=== PATIENT | male | born 2000 | race Caucasian/White ===

== ENCOUNTER 2024-05-02 12:09 | Outpatient (AMB) | payer OTHER, SELFPAY ==
--- NOTE | 2024-05-02 11:57 | A.OFFPC_ITS ---
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 Allergies amoxicillin Allergy (Severe, Verified 05/02/24 12:23) Shortness of Breath Tobacco use date assessed: 05/02/24 Dental Screening Dental Screen Date: 05/02/24 Did you have a dental visit in the last 12 months?: No Did you have a dental problem in the last 6 months where you did not have access to dental care?: No Was dental information given to patient?: Patient has dentist HPI HPI Comments History of Present Illness Details 23-year-old male renal calculi, generali zed anxiety disorder, major depressive disorder, ADHD, hx of childhood asthma, viral colitis & ileitis, functional constipation Surgical: none Social works at [employer], lives @ home with mom. Has a brother and sister. Family history mother with anxiety, endometriosis, hypertension, with ADHD, maternal grandmother with bipolar, depression, hyperlipidemia, schizophrenia, brother w/ fatty liver Health Maintenance: EGD colonoscopy completed 11/18/2021 showing scattered ulcerations in the terminal ileum tdap 2023 declined flu Specialsits GI* Uro* *no longer seeing. Optho last exam 1-2 years ago History of Present Illness The patient is a 23-year-old male presenting to [facility] as a new patient & for a CPE. He has a history of renal calculi, generalized anxiety disorder, major depressive disorder, ADHD, asthma, colitis, and functional constipation. The patient reports that he is currently not taking any medications and is managing well without them. He recalls experiencing back pain on the left side intermittently recently but notes it resolved on its own and is not associated with any urinary symptoms such as hematuria or changes in urination. He reports no current or recent episodes of anxiety or depression, with his mood described as good and ADHD well-controlled without medication. His appetite is good, and his weight has remained stable. The patient reports that his sleep could be improved due to his work schedule, noting he works second shift, which impacts sleep quality. Health Maintenance - Discussed and confirmed recent tetanus vaccination. - No flu vaccination taken; offered but declined during this visit. - Encouraged future patient portal sign- up for managing health records and receiving lab results. Social History - Currently living with mother. Reports feeling safe at home. - Not sexually active and no history of sexually transmitted diseases noted. - Visual issues mentioned, specifically challenges with astigmatism at night. Review of Systems - Gastrointestinal: Denies abdominal kathryn n; bowel movements normal. - Neurological: Denies headaches or dizz iness. - Psychiatric: Denies anxiety, depressio n; sleep affected by work schedule. General: Well developed, well nourished, in no acute distress. Appears stated age. Head: Normocephalic, atraumatic. Eyes: Pupils are equal, round and reactive to light and accommodation. Conjunctivae are clear. Vision grossly normal. Ears: TMs clear AU, EACS WNL Nose: Patent, without discharge. Mouth: There are no ulcers or lesions noted. No inflammation, no post nasal drip, no plaques nor exudates. Neck: Supple, no adenopathy or thyromegaly. Lungs: Clear to auscultation bilaterally. No rales, rhonchi or wheeze noted. Good air flow in all palomo. Heart: Regular rate and rhythm. No murmurs, click, rubs or gallops are noted. Abdomen: Bowel sounds present in all quadrants. The abdomen is soft, nontender, with no masses or organomegaly noted. No hernias are noted. NO CVAT bilat Musculoskeletal: Joints are nontender, without swelling, redness, or effusions. Range of motion is observed to be normal. Pulses: Peripheral pulses are equal and palpable bilaterally. Extremities: No clubbing, cyanosis nor edema is noted. Neurologic: Gait and station normal. Cranial Nerves 2-12 intact. Motor stren gth grossly symmetrical and intact. No sensory loss. Balance normal. Skin: No rashes, ulcers, or lesions noted. Turgor is good. Skin color is good. Hair and nails are without abnormalities. Psych: Normal eye contact, affect and mood appropriate, and normal interactions. Patient is alert and appropriate to context. Plan - Monitor renal calculi symptoms; will o btain labs to assess current kidney function. - Encourage following up with mental hea lt for generalized anxiety disorder and major depressive disorder if symptoms recur. - Continue monitoring ADHD without medic ation unless symptoms return. 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 - Maintain dietary management for coliti s and functional constipation. Patient was informed and verbally consented to the use of an ambient scribe for clinic note documentation during this visit. Discussion Notes I discussed with the patient the importance of monitoring for symptoms of kidney stones, given his history of renal calculi. We agreed to perform laboratory tests today.. I advised the patient to observe for any recurring symptoms, such as back pain associated with urinary changes, which could indicate a need for immediate attention. We also talked about the management of his mental health conditions, noting his current stable mood. The patient expressed understanding and willingness to engage with the patient portal for future communication and management. Additionally, I provided anticipatory guidance on maintaining his health, including discussing his sleep challenges due to work hours and encouraging ongoing asthma management as needed. Form completed for window tint for RMV r/t astigmatism. Patient Instructions - Follow up on lab results via the [email or web address] portal. - Contact the clinic if experiencing any symptoms of kidney stones, such as severe back pain or changes in urination. - Practice sleep hygiene to improve slee p quality despite work schedule. - Maintain adherence to dietary recommen dations for colitis management. - Reach out if there are any changes in mental health status for further support and management. - Ensure safety practices at work and ho me, and reach out for help if feeling unsafe in any environment. - RTO 1 year CPE, sooner PRN PFSH Medical History (Updated 05/02/24 @ 12:45 by Constance Jimenez, [facility]) Broken toe Astigmatism of both eyes Kidney stones Impulsive ADHD Surgical History (Updated 05/02/24 @ 12:04 by Theodore Medina MA) H/O endoscopy Hx of colonoscopy Family History (Updated 05/02/24 @ 12:02 by Theodore Medina MA) Maternal Grandfather Substance abuse Paternal Grandmother Breast cancer Thyroid disorder Cardiovascular disease Hypertension Maternal Grandmother Breast cancer Thyroid disorder Cardiovascular disease Paternal Grandfather Diabetes Hypertension Brother Fatty liver disease, nonalcoholic Mother Hypertension Father Hypertension Social History (Updated 05/02/24 @ 11:57 by Theodore Medina MA) Household Members: Family Both parents involved: Yes Caregiver staying overnight: No Housing: House Are you a primary care director to a significant other at home: No Do you presently have visiting nurse or other home services: No 75 years or older and lives alone: No Alcohol intake: current Alcohol intake frequency: a few times a month Patient Tobacco Use Status: Never used Tobacco e-Cigarette/Vaping Use: Never Used Second Hand Smoke Exposure: No Current occupational status: employed Cognitive needs: No Hearing needs: No Vision needs: Yes Questionnaire PHQ-9 Over the last 2 weeks, how often have you been bothered by any of the following problems? 1. Little interest or pleasure in doing things: several days 2. Feeling down, depressed, or hopeless: not at all 3. Trouble falling or staying asleep, or sleeping too much: several days 4. Feeling tired or having little energy: not at all 5. Poor appetite or overeating: not at all 6. Feeling bad about yourself - or that you are a failure or have let yourself or your family down: not at all 7. Trouble concentrating on things, such as reading the newspaper or watching television: several days 8. Moving or speaking so slowly that other people could have noticed. Or the opposite - being so fidgety or restless that you have been moving around a lot more than usual: not at all 9. Thoughts that you would be better off or of hurting yourself in some way: not at all Total score: 3 Depression Screening Interpretation: Negative Depression Screening Done: Yes 00506 - PHQ-9 Billing: Yes Source: Developed by Drs. Yung Lopez, Margaret August, Angelo Paredes and colleagues, with an educational vanesa from [employer]. Thrive Questionnaire Date Thrive assessed: 05/02/24 I am a: Patient What is your living situation today?: I have a steady place to live Within the past 12 months, did the food you bought not last and you didn't have the money to get more?: Never true Within the past 12 months, did you worry whether your food would run out before you got money to buy more?: Never true Do you have trouble paying for medicines?: No Do you have trouble getting transportation to medical appointments?: No Do you have trouble paying your heating and electricity bill?: No Do you have trouble taking care of your child, family member or friend?: No Do you have trouble with day-to-day activities such as bathing, preparing meals, shopping, managing finances, etc.?: No Are you currently unemployed and looking for a job?: No Are you interested in more education?: No THRIVE Score: 0 AUDIT C Alcohol Use Questionnaire (AUDIT-C) 1. How often do you have a drink containing alcohol?: Monthly or less 2. How many drinks containing alcohol do you have on a typical day when you are drinking?: 1 or 2 Total Score: 1 Score Reviewed/Action Taken: Yes ISABEL-7 AMB Questionnaire ISABEL-7 Date ISABEL - 7 assessed: 05/02/24 Feeling nervous, anxious, or on edge: 0 = Not at all Not being able to stop or control worryin = Not at all Worrying too much about different things: 0 = Not at all Trouble relaxin = Not at all Being so restless that it is hard to sit still: 0 = Not at all Becoming easily annoyed or irritable: 0 = Not at all Feeling afraid as if something awful might happen: 0 = Not at all Total ISABEL-7 score (0-4 normal; 5-9 mild; 10-14 moderate; 15-21 severe): 0 Source: Developed by Drs. Yung Lopez, Margaret August, Angelo Paredes and colleagues, with an educational vanesa from [employer]. ISABEL-7 Assessment Billing ISABEL-7 Assessment Tool: ISABEL-7 Assessment 25179 Physical exam (Primary Care) Tobacco/Smoking Status: Tobacco use Status Tobacco use date assessed 05/02/24 05/02/24 12:07 Patient Tobacco Use Status Never used Tobacco 05/02/24 12:07 e-Cigarette/Vaping Use Never Used 05/02/24 12:07 Depression Screening Interpretation: Negative Coding Level of Care Code New Pt Prev Care 18-39yr(70670 Diagnoses Encounter for general adult medical examination without abnormal findings Z00.00 ISABEL (generalized anxiety disorder) F41.1 History of colitis Z87.19 MDD (recurrent major depressive disorder) in remission F33.40 Attention deficit hyperactivity disorder (ADHD), combined type F90.2 Attention deficit-hyperactivity disorder type: combined inattentive- hyperactive Astigmatism of both eyes, unspecified type H52.203 Astigmatism type: unspecified Kidney stones N20.0 Laboratory exam ordered as part of routine general medical examination Z00.00 Additional Codes ISABEL-7 Assessment Billing - ISABEL-7 Assessment Tool: ISABEL-7 Assessment 97553 ([id number]) PHQ-9 - 83485 - PHQ-9 Billing: Yes ([id number]) Assessment & Plan Assessment & Plan (1) Encounter for general adult medical examination without abnormal findings: Code(s): Z00.00 - Encounter for general adult medical examination without abnormal findings Category: Medical (2) ISABEL (generalized anxiety disorder): Code(s): F41.1 - Generalized anxiety disorder Category: Medical (3) History of colitis: Comment: viral Code(s): Z87.19 - Personal history of other diseases of the digestive system Category: Medical (4) MDD (recurrent major depressive disorder) in remission: Code(s): F33.40 - Major depressive disorder, recurrent, in remission, unspecified Category: Medical (5) ADHD: Code(s): F90.9 - Attention-deficit hyperactivity disorder, unspecified type Category: Medical Qualifiers: Attention deficit-hyperactivity disorder type: combined inattentive- hyperactive Qualified Code(s): F90.2 - Attention-deficit hyperactivity disorder, combined type (6) Astigmatism of both eyes: Code(s): H52.203 - Unspecified astigmatism, bilateral Category: Medical Qualifiers: Astigmatism type: unspecified Qualified Code(s): H52.203 - Unspecified astigmatism, bilateral (7) Kidney stones: Code(s): N20.0 - Calculus of kidney Category: Medical (8) Laboratory exam ordered as part of routine general medical examination: Code(s): Z00.00 - Encounter for general adult medical examination without abnormal findings Category: Medical Plan . Orders: Orders TSH reflex Free T4 Today Z00.00 - Encounter for general adult medical examination without abnormal findings Complete Blood Count no Diff Today Z00.00 - Encounter for general adult medical examination without abnormal findings Comprehensive Met. Panel Today Z00.00 - Encounter for general adult medical examination without abnormal findings Lipid Panel Today Z00.00 - Encounter for general adult medical examination without abnormal findings Microalbumin, Random (w Creat) Today Z00.00 - Encounter for general adult medical examination without abnormal findings UA CC w/rflx Micro + Cult Today Z00.00 - Encounter for general adult medical examination without abnormal findings Patient Instructions: - Follow up on lab results via the patient portal. - Contact the clinic if experiencing any symptoms of kidney stones, such as severe back pain or changes in urination. - Practice sleep hygiene to improve sleep quality despite work schedule. - Maintain adherence to dietary recommendations for colitis management. - Reach out if there are any changes in mental health status for further support and management. - Ensure safety practices at work and home, and reach out for help if feeling unsafe in any environment. Health screenings for men You should visit your health care provider regularly, even if you feel healthy. The purpose of these visits is to: Screen for medical issues Assess your risk for future medical problems Encourage a healthy lifestyle Update vaccinations and other preventive care services Help you get to know your provider in case of an illness Information Even if you feel fine, you should still see your provider for regular checkups. These visits can help you avoid problems in the future. For example, the only way to find out if you have high blood pressure is to have it checked regularly. High blood sugar and high cholesterol level also may not have any symptoms in th e early stages. Simple blood tests can check for these conditions. There are specific times when you should see your provider or receive specific health screenings. The [place] Preventive Services Task Force publishes a list of recommended screenings. Below are screening guidelines for men ages 40 to 64. BLOOD PRESSURE SCREENING Have your blood pressure checked at least once every year. Watch for blood pressure screenings in your area. Ask your provider if you can stop in to have your blood pressure checked. Ask your provider if you need your blood pressure checked more often if: You have diabetes, heart disease, kidney problems, or are overweight or have certain other health conditions You have a first-degree relative with high blood pressure You are Black Your blood pressure top number is from 120 to 129 mm Hg, or the bottom number is from 70 to 79 mm Hg If the top number is 130 mm Hg or greater or the bottom number is 80 mm Hg or greater, this is considered stage 1 hypertension. Schedule an appointment with your provider to learn how you can lower your blood pressure. Effects of age on blood pressure CHOLESTEROL SCREENING Cholesterol screening should begin at age 35 for men with no known risk factors for coronary heart disease. Repeat cholesterol screening should take place: Every 5 years for men with normal cholesterol levels More often if changes occur in lifestyle (including weight gain and diet) More often if you have diabetes, heart disease, kidney problems, or certain other conditions COLORECTAL CANCER SCREENING If you are under age 45, talk to your provider about getting screened. You may need to be screened if you have a strong family history of colon cancer or polyps. Screening may also be considered if you have risk factors such as a history of inflammatory bowel disease or polyps. If you are age 45 to 75, you should be screened for colorectal cancer. There are several screening tests available: A stool-based fecal occult blood (gFOBT) or fecal immunochemical test (FIT) every year A stool sDNA test every 1 to 3 years Flexible sigmoidoscopy every 5 years or every 10 years with stool testing FIT done every year CT colonography (virtual colonoscopy) every 5 years Colonoscopy every 10 years You may need a colonoscopy more often if you have risk factors for colorectal cancer, such as: Ulcerative colitis A personal or family history of colorectal cancer A history of growths in your colon called adenomatous polyps DENTAL EXAM Go to the dentist once or twice every year for an exam and cleaning. Your dentist will evaluate if you have a need for more frequent visits. DIABETES SCREENING All adults who do not have risk factors for diabetes should be screened starting at age 35 and repeated every 3 years. If you have other risk factors for diabetes, such as a first degree relative with diabetes, overweight or obesity, high blood pressure, prediabetes, or a history of heart disease, you may be tested more often. If you are overweight and have other risk factors, such as high blood pressure and are planning to become , screening is recommended. EYE EXAM Have an eye exam every 2 to 4 years ages 40 to 54 and every 1 to 3 years ages 55 to 64. Your provider may recommend more frequent eye exams if you have vision problems or glaucoma risk. Have an eye exam that includes an examination of your retina (back of your eye) at least every year if you have diabetes. IMMUNIZATIONS Commonly needed vaccines include: Flu shot: get one every year COVID-19 vaccine: ask your provider what is best for you Tetanus-diphtheria and acellular pertussis (Tdap) vaccine: have as one of your tetanus-diphtheria vaccines if you did not receive it as an adolescent Tetanus-diphtheria: have a booster (or Tdap) every 10 years Varicella vaccine: receive 2 doses if you never had chickenpox or the varicella vaccine and were born in 1979 or after Hepatitis B vaccine: receive 2, 3, or 4 doses, depending on your exact circumstances, if you did not receive these as a child or adolescent, until age 59 Shingles (herpes zoster) vaccine: at or after age 50 Ask your provider if you should receive other immunizations, especially if you have certain medical conditions, such as diabetes or are at increased risk for some diseases such as pneumonia. INFECTIOUS DISEASE SCREENING Screening for hepatitis C: all adults ages 18 to 79 should get a one-time test for hepatitis C. Screening for human immunodeficiency virus (HIV): all people ages 15 to 65 should get a one-time test for HIV. Depending on your lifestyle and medical history, you may need to be screened for infections such as syphilis, chlamydia, and other infections. LUNG CANCER SCREENING You should have an annual screening for lung cancer with low-dose computed tomography (LDCT) if: You are age 50 to 80 years AND You have a 20 pack-year smoking history AND You currently smoke or have quit within the past 15 years OSTEOPOROSIS SCREENING If you are age 50 to 64 and have risk factors for osteoporosis, you should discuss screening with your provider. Risk factors can include long-term steroid use, low body weight, smoking, heavy alcohol use, having a fracture after age 50, or a family history of hip fracture or osteoporosis. Osteoporosis PHYSICAL EXAM All adults should visit their provider from time to time, even if they are healthy. The purpose of these visits is to: Screen for diseases Assess risk of future medical problems Encourage a healthy lifestyle Update vaccinations and other preventive care services Maintain a relationship with a provider in case of an illness Your height, weight, and body mass index (BMI) should be checked at every exam. During your exam, your provider may ask you about: Depression and anxiety Diet and exercise Alcohol and tobacco use Safety, such as use of seat belts and smoke detectors Your medicines and risk for interactions PROSTATE CANCER SCREENING If you're 55 through 69 years old, before having the test, talk to your provider about the pros and cons of having a PSA test. Ask about: Whether screening decreases your chance of dying from prostate cancer. Whether there is any harm from prostate cancer screening, such as side effects from testing or overtreatment of cancer when discovered. Whether you have a higher risk of prostate cancer than others. If you are age 55 or younger, screening is not generally recommended. You should talk with your provider about if you have a higher risk for prostate cancer. Risk factors include: Having a family history of prostate cancer (especially a brother or father) Being If you choose to be tested, the PSA blood test is repeated over time (yearly or less often), though the best frequency is not known. Prostate examinations are no longer routinely done on men with no symptoms. Prostate cancer SKIN EXAM Your provider may check your skin for signs of skin cancer, especially if you're at high risk. People at high risk include those who have had skin cancer before, have close relatives with skin cancer, or have a weakened immune system. TESTICULAR EXAM The [place] Preventive Services Task Force (USPSTF) now recommends against performing testicular self-exams. Doing testicular self-exams has been shown to have little to no benefit. Walk-In Care (Urgent Care): We Make it Easy Walk-in for urgent medical issues such as: ? Seasonal Allergies ? Insect Bites ? Cough ? Diarrhea ? Acute Asthma Attacks ? Back, Knee or Joint Pain ? Ear Infection ? Fever without a Rash ? Headaches ? Nausea ? [place], Rash or Skin Irritation ? Sore Throat ? Sports Physicals ? Vomiting Most insurances are accepted. Patients do not need to be part of the [facility] to seek care at the walk-in clinic. Locations [facility] , [place] [address] ? [phone] [facility] in [place] provides services to ages 18 and over. Open Sunday-Sunday: 8 a.m. to 5 p.m. and Sunday: 9 a.m. to 3 p.m.* *Hours may vary due to staffing availability. To confirm Walk-In Care hours in [place], please call [phone]. [address] [place] [address] ? [phone] [facility] in [place] provides services to ages 12 and over. Open Sunday-Sunday: 8 a.m. to 5 p.m. Hours may vary due to staffing availability. To confirm Walk-In Care hours in [place], please call [phone]. LABORATORY SERVICES: [facility] ? Primary Location [address] [place] [address] Sunday through Sunday 6:00 AM ? 5:00 PM Sunday 7:00 AM ? 11:00 AM* [phone] The [facility] is centrally located near the front entrance of the Medical Center for easy outpatient access. Convenient parking is provided for outpatients. *Hours may vary due to staffing availability. To confirm Laboratory hours for any location, please call [phone]. Offsite Location For your convenience, we offer offsite laboratory draw stations at the following locations: [address] [facility], [place] ? [address], [address], [place] Sunday through Sunday 7:30 AM ? 1:00 PM* [phone] *Hours may vary due to staffing availability. To confirm Laboratory hours for any location, please call [phone]. [place] ? [address] [facility], [place] Sunday through Sunday 6:00 AM ? 3:30 PM* Sunday 6:30 AM ? 3 PM* [phone] *Hours may vary due to staffing availability. To confirm Laboratory hours for any location, please call [phone] [place] [address] Sunday through Sunday 7:30 AM ? 4:00 PM* [phone] *Hours may vary due to staffing availability. To confirm Laboratory hours for any location, please call [phone] [place] [address] Sunday through 9:00 AM ? 4:00 PM* *Hours may vary due to staffing availability. To confirm Laboratory hours for any location, please call [phone]. Appointments are not necessary. Walk-ins are welcome. Like all the departments throughout the [facility], our Lab undergoes frequent reviews to ensure the quality and accuracy of test results, and our staff takes special pride in its status as a nationally accredited facility. Patient Portal: ONE PATIENT. ONE RECORD. BETTER CARE. [facility] has a fully integrated, cutting- edge mobile electronic health information system that has revolutionized the way we care for our patients and manage our organization. This system improves communication and coordination enabling us to provide safe, higher-quality care, and an overall positive experience for staff and patients. Our first priority, as always, is to deliver the highest quality care possible. The system is running in the background supporting that priority. This portal is for all [facility] services and practices. If you are experiencing any technical difficulties with enrolling or logging into the Patient Portal please complete the [facility] Patient Portal Technical Support Form. [facility] now offers a new secure on-line interactive tool for patients to review their health information ? ?Patient Portal. This interactive web portal will enable patients and their families to take an active role in their care by providing easy, secure access to their health information via the internet. The Patient Portal provides patients with instant access to their health information, including laboratory results, medications, allergies, demographic information, visit history, and more. In addition to managing their own care, parents and health care proxies with authorized consent will appreciate the ability to access the records of those individuals for whom they provide care. Please note: if you wish to gain access (Proxy) to another patient?s portal, you will be required to come to the Medical Records Department in person at [facility]. Both the patient giving proxy access and the proxy will need to provide photo identification and complete the appropriate authorization. The Patient Portal also allows track their appointments online. The [facility] Patient Portal also saves patients time by allowing them to submit updates to their demographic and contact information prior to their visits. Portal email notifications will also alert patients to any new activity on their portal, such as test results and new appointments. In order to initially enroll in the [facility] Patient Portal, you will need to enter some required information including the following: * your [facility] Medical Record number * your personal home email address * name * date of Please note: In order to enroll in the [facility] Patient Portal, we need to have your email address on file in your electronic medical record. ?The email address needs to be specific for one person (yourself) in order for your Portal enrollment to be successful. ?You can update your email address in person with our Registration staff when you are registering for a hospital visit. ?O therwise, you will need to come to the Health Information Management (Medical Records) Department at [facility]. ?We are open from Sunday ? Sunday from 7:30 a.m. ? 4:30 p.m. ?You will be required to present a photo id. Once you have successfully enrolled in the Patient Portal, you will receive a one-time user id and password for the Portal, sent to your email address. ?This will allow you to log into the Patient Portal within 99 hrs and reset your own logon id and password, and define personal security questions. ?Once your permanent login and password have been set, you can log into the [facility] Patient Portal at any time via the blue button above or from the Portal Logon button on any page of the [facility] website. [facility] encourage all of our patients to enroll in Patient Portal as it presents a valuable opportunity for patients and their families to actively participate in their care and stay healthy Welcome to [facility]. ?We look forward to working with you.
[2024-05-02 12:12] VITALS: BP 134/70; PULSE 90; RESP 13; O2SAT 99; BMI 23.0
== END 2024-05-02 12:46 | disposition home or self-care (01) ==
PROVIDERS: PCP Nurse Practitioner Family; Visit Provider Nurse Practitioner Family
DX: Z00.00 Encounter for general adult medical examination without abnormal findings (principal); F41.1 Generalized anxiety disorder; Z87.19 Personal history of other diseases of the digestive system; F33.40 Major depressive disorder, recurrent, in remission, unspecified; F90.2 Attention-deficit hyperactivity disorder, combined type; H52.203 Unspecified astigmatism, bilateral; N20.0 Calculus of kidney

== ENCOUNTER → 2024-05-02 12:09 | Outpatient (BNVA) | payer OTHER, SELFPAY | PROVIDERS: PCP Nurse Practitioner Family; Visit Provider Nurse Practitioner Family | DX: Z00.00 Encounter for general adult medical examination without abnormal findings (principal); F41.1 Generalized anxiety disorder; F33.40 Major depressive disorder, recurrent, in remission, unspecified; F90.2 Attention-deficit hyperactivity disorder, combined type; H52.203 Unspecified astigmatism, bilateral; N20.0 Calculus of kidney; Z87.19 Personal history of other diseases of the digestive system | CPT/HCPCS: 96127 ==

== ENCOUNTER 2024-05-02 13:02 | Outpatient (REF) | payer OTHER, SELFPAY ==
[2024-05-02 14:24] LABS: Hematocrit 41.2 % (42.0-52.0); Hemoglobin 14.1 g/dl (14.0-18.0); Mean Corpuscular HGB Conc 34.2 g/dl (31.0-36.0); Mean Corpuscular Hemoglobin 29.5 pg (27.0-33.0); Mean Corpuscular Volume 86.2 fL (80.0-98.0); Mean Platelet Volume 11.2 fL (9.4-12.4); Platelet Count 277 X10*3/uL (160-400); Red Blood Count 4.78 X10*6/uL (4.60-5.80); Red Cell Distribution Width 11.7 % (11.0-16.0); White Blood Count 7.3 X10*3/uL (4.8-10.8)
[2024-05-02 18:02] LABS: Appearance Urine Clear; Color Urine Dark Yellow; Glucose Urine UA Negative (Negative); Leukocyte Esterase Urine Trace (Negative); Nitrite Urine Negative (Negative); Specific Gravity - Urine >= 1.030 (1.005-1.025); UMIC TRIGGER UACC YES; Urine Blood Negative (Negative); Urine Ketones Trace mg/dL (Negative); Urine Protein Negative (Neg-Trace)
[2024-05-02 18:07] LABS: Bacteria Urine None Seen (None Seen); Hyaline Casts Urine 0-2 /LPF (0-2); RBC Urine 0-2 /HPF (0-2); Squamous Epithelial Cell Urine 0-2 /HPF (0-2); WBC Urine 0-5 /HPF (0-5)
[2024-05-02 18:14] LABS: Alanine Aminotransferase 24 U/L (0-40); Albumin Level 4.6 g/dL (3.5-5.0); Alkaline Phosphatase 50 U/L (39-117); Anion Gap 7 (12-20); Aspartate Amino Transferase 22 U/L (5-37); Blood Urea Nitrogen 10 mg/dL (9-16); Calcium 9.7 mg/dL (8.4-10.2); Carbon Dioxide 31 mmol/L (22-29); Chloride 106 mmol/L (96-108); Cholesterol 137 mg/dL (<200); Estimated Glomerular Filt Rate > 60; Glucose Random 77 mg/dL (60-115); HDL Cholesterol 38 mg/dL (>40); LDL Cholesterol Calculated 85 mg/dL (<100); Potassium 4.1 mmol/L (3.3-5.1); Sodium 140 mmol/L (135-145); Triglycerides 70 mg/dL (<150)
[2024-05-02 18:32] LABS: TSH reflex Free T4 0.64 uIU/mL (0.32-4.0)
[2024-05-02 18:40] LABS: Creatinine Urine 257.21 mg/dL; Microalbum/Creatinine Ratio Ur 4.6 ug/mg cr (<30)
== END 2024-05-02 13:03 | disposition home or self-care (01) ==
LOC: HO.WFDLDS 13:02
PROVIDERS: Visit Provider Nurse Practitioner Family
DX: Z00.00 Encounter for general adult medical examination without abnormal findings (principal)
CPT/HCPCS: 36415; 80053; 80061; 81001; 82043; 82570; 84443; 85027

== ENCOUNTER 2024-10-30 11:10 | Outpatient (REF) | payer OTHER, SELFPAY ==
--- NOTE | ~2024-10-30 | XR_ITS ---
EXAMINATION: XR HAND 3 OR MORE VIEWS LEFT HISTORY: S60.222A - Contusion of left hand, initial encounter COMPARISON: There are no prior studies available for comparison. FINDINGS: Three views of the left hand are submitted. Osseous mineralization is normal. There is no fracture or dislocation. The joint spaces are preserved. The soft tissues are unremarkable. XR/XR hand LT min 3V IMPRESSION: Unremarkable examination of the left hand. Electronically signed by: Yung Mclean MD 10/30/2024 12:12 PM EDT
== END 2024-10-30 11:11 | disposition home or self-care (01) ==
LOC: HO.HMGCX 11:10
PROVIDERS: PCP Nurse Practitioner Family; Visit Provider Nurse Practitioner Family
DX: S60.222A Contusion of left hand, initial encounter (principal); M79.642 Pain in left hand; M79.89 Other specified soft tissue disorders; W19.XXXA Unspecified fall, initial encounter
CPT/HCPCS: 73130

== ENCOUNTER 2024-10-30 11:10 | Outpatient (AMB) | payer OTHER, SELFPAY ==
--- NOTE | 2024-10-30 11:13 | MHC.OFFWIV ---
Intake Vital Signs 10/30/24 11:14 Height 5 ft 9.5 in Weight 153 lb BMI 22.3 BP 108/60 Blood Pressure Location Rt brachial Position Sitting Pulse 75 Pulse Source Pulse Oximeter Temp 98.0 F Temp Source Oral Pulse Oximetry (%) 98 Oxygen Delivery Method Room Air Intake Visit Reasons: EP-lt hand swollen/pain from a fall Intake Note: presents with left hand pain and swelling after falling earlier today Patient Tobacco Use Status: Never used Tobacco Allergies amoxicillin Allergy (Severe, Verified 10/30/24 11:18) Shortness of Breath Do you need a note to return to daycare/school/sports/work: Yes HPI HPI Comments History of Present Illness Details 23 y/o Male patient who presents to the walk in clinic with c/o Left hand pain and swelling after a Fall today. Reports pain mainly located at the MCP joint. [facility] Medical History (Updated 10/30/24 @ 11:45 by Denise Aguilar NP) Contusion of left hand, initial encounter Broken toe Astigmatism of both eyes Kidney stones Impulsive ADHD Surgical History (Updated 05/02/24 @ 12:04 by Theodore Medina MA) H/O endoscopy Hx of colonoscopy Family History (Updated 05/02/24 @ 12:02 by Theodore Medina MA) Maternal Grandfather Substance abuse Paternal Grandmother Breast cancer Thyroid disorder Cardiovascular disease Hypertension Maternal Grandmother Breast cancer Thyroid disorder Cardiovascular disease Paternal Grandfather Diabetes Hypertension Brother Fatty liver disease, nonalcoholic Mother Hypertension Father Hypertension Social History (Updated 05/02/24 @ 11:57 by Theodore Medina MA) Household Members: Family Both parents involved: Yes Caregiver staying overnight: No Housing: House Are you a primary career guidance counselor to a significant other at home: No Do you presently have visiting nurse or other home services: No 75 years or older and lives alone: No Alcohol intake: current Alcohol intake frequency: a few times a month Patient Tobacco Use Status: Never used Tobacco e-Cigarette/Vaping Use: Never Used Second Hand Smoke Exposure: No Current occupational status: employed Cognitive needs: No Hearing needs: No Vision needs: Yes Review of Systems Const All systems reviewed & are unremarkable except as noted in HPI and below Physical Exam Vital Signs: Last Vital Signs Temp 98.0 F 10/30/24 11:14 Pulse 75 10/30/24 11:14 BP 108/60 10/30/24 11:14 Pulse Ox 98 10/30/24 11:14 Oxygen Delivery Method Room Air 10/30/24 11:14 BMI result Body Mass Index 22.3 Const General: no acute distress Nutritional Appearance: thin Orientation/consciousness: patient oriented x3 Neuro General: patient oriented x3, gait normal and moves all extremities Motor exam (neuro): 5/5 motor strength present throughout Extrem Left upper extremity: hand Details: normal capillary refill, tenderness, normal ROM of fingers, swelling Location: of the dorsal hand and of the 5th digit Location: at the MCP joint and ecchymosis Location: of the 5th digit Location: at the MCP joint; no unusual warmth and no crepitus Assessment & Plan Assessment & Plan (1) Contusion of left hand, initial encounter: Code(s): S60.222A - Contusion of left hand, initial encounter Plan: Ordered Xray Hand to r/o Fracture NSAIDs for pain relief Wrapped hand with Carlos bandage. Ice/Hot. Orders: Orders XR hand LT 2V Today S60.222A - Contusion of left hand, initial encounter Medications: New ibuprofen 800 mg PO Q8H 30 tabs 0RF 10 days S60.222A - Contusion of left hand, initial encounter Coding Level of Care Code Est Pt Level 4 (23678) Diagnoses Contusion of left hand, initial encounter S60.222A Time Spent (min) 20
[2024-10-30 11:14] VITALS: BP 108/60; PULSE 75; TEMP 36.7; O2SAT 98; BMI 22.3
--- OUTSIDE RECORDS SUMMARY | 2024-10-30 11:59 | XMS_ITS | Clinical Summary ---
Author Organization [employer] [facility] ity Address [address] [place] [address] Care Team Providers Care Chin Strap Cutter Name Role Phone Unavailable Primary Care Provider Unavailabl e Social History Tobacco Use Types Packs/Day Years Used Date Smoking Tobacco: Never Assessed Sex and Gender Information Value Date Recorded Sex Assigned at Not on file Legal Sex Male 1:55 PM EST Gender Identity Not on file Sexual Orientation Not on file Plan of Treatment Health Maintenance Due Date Last Done Comments HPV Vaccines (1 - Male 3-dos e series) 2016 Meningococcal B Vaccine (1 o f 2 - Standard) 2017 DTaP,Tdap,and Td Vaccines (1 - Tdap) 2020 Hepatitis B Vaccines (1 of 3 - 19+ 3-dose series) 2020 COVID-19 Vaccine (1 - 2023-2 5 season) 2023 Influenza Vaccine (#1) 2024 HIB Vaccines Aged Out No longer eligi ble based on patient's age to complete this topic Hepatitis A Vaccines Aged Out No long er eligible based on patient's age to complete this topic IPV Vaccines Aged Out No longer eligi ble based on patient's age to complete this topic MMR Vaccines Aged Out No longer eligi ble based on patient's age to complete this topic Meningococcal ACWY Vaccine Aged Out N o longer eligible based on patient's age to complete this topic Pneumococcal Vaccine: Pediat rics (0 to 5 Years) and At-Risk Patients (6 to 49 Years) Aged Out No longer eligible b ased on patient's age to complete this topic RSV Immunization Patients Un charisma 20 months Aged Out No longer eligible b ased on patient's age to complete this topic Varicella Vaccines Aged Out No longer eligible based on patient's age to complete this topic
== END 2024-10-30 12:00 | disposition home or self-care (01) ==
PROVIDERS: PCP Nurse Practitioner Family; Visit Provider Nurse Practitioner Family
DX: S60.222A Contusion of left hand, initial encounter (principal)

== ENCOUNTER → 2024-10-30 11:51 | Outpatient (BNV) | payer OTHER, SELFPAY | PROVIDERS: PCP Nurse Practitioner Family; Visit Provider Radiology Diagnostic Radiology | DX: S60.222A Contusion of left hand, initial encounter (principal) | CPT/HCPCS: 73130 ==

== ENCOUNTER 2024-12-17 08:20 | Outpatient (REF) | payer OTHER, SELFPAY ==
--- NOTE | ~2024-12-17 | XR_ITS ---
EXAMINATION: XR KNEE, LEFT CLINICAL INFORMATION: S89.92XA - Unspecified injury of left lower leg, initial encounter COMPARISON: None available. TECHNIQUE: AP and lateral views of the left knee. FINDINGS: There is no joint effusion. There is subtle narrowing of the medial joint space. There are no soft tissue calcifications Groundglass density which geographic margins is noted in the posterior medial metaphysis of the distal femur. XR/XR knee LT 2V IMPRESSION: Mild nonspecific medial joint space narrowing. Nonaggressive appearing groundglass density lesion in the distal femur. Electronically signed by: Jorje Ortiz MD 12/17/2024 10:03 AM EDT
== END 2024-12-17 08:21 | disposition home or self-care (01) ==
LOC: HO.HMGCX 08:20
PROVIDERS: PCP Nurse Practitioner Family; Visit Provider Internal Medicine
DX: S80.212A Abrasion, left knee, initial encounter (principal); R26.2 Difficulty in walking, not elsewhere classified; W31.9XXA Contact with unspecified machinery, initial encounter
CPT/HCPCS: 73560

== ENCOUNTER 2024-12-17 08:20 | Outpatient (AMB) | payer OTHER, SELFPAY ==
[2024-12-17 08:30] VITALS: BP 120/68; PULSE 80; TEMP 36.8; O2SAT 99; BMI 22.7
--- NOTE | 2024-12-17 08:30 | AM.OFFWIN_ITS ---
Intake Vital Signs 12/17/24 08:30 Height 5 ft 9.5 in Weight 156 lb BMI 22.7 BP 120/68 Blood Pressure Location Rt brachial Position Sitting Pulse 80 Pulse Source Pulse Oximeter Temp 98.3 F Temp Source Oral Pulse Oximetry (%) 99 Oxygen Delivery Method Room Air Intake Visit Reasons: ep left knee pain banged on sunday Patient Tobacco Use Status: Never used Tobacco Allergies amoxicillin Allergy (Severe, Verified 12/17/24 08:31) Shortness of Breath Medication List - Last Reconciled 12/17/24 by Leandra Brumfield MD ibuprofen 800 mg PO Q8H 10 days Do you need a note to return to daycare/school/sports/work: Yes HPI ep left knee pain banged on sunday HPI Details Interval History The patient is a 24-year-old male presenting with knee pain. Left knee pain: - Onset: The incident occurred on Sunday . - He ran into a machine, hitting his lef t knee hard. - The injury has resulted in difficulty putting pressure on the knee and bending it. - Initial swelling and redness on the kn ee were reported, but both have reduced. - The patient reports a sensation that t he kneecap moved. - Previous care included cleaning the ab rasion with a disinfectant spray and applying Trimbroncebiotic. Social History: - The patient requires a note for work d ue to difficulty walking. - He was off work yesterday and may need additional time off based on recovery and current ability to walk. Problem List - Left knee pain following trauma Patient Instructions - Use Tylenol or equivalent for pain man agement. - Ensure to have the X-ray completed. - Wear a knee brace as provided. - Await contact from the orthopedic depa rtment for further evaluation. - Rest and avoid putting weight on the a ffected knee. - Follow up with primary care provider, Latia Jimenez. 14:27 X-ray knee report available reviewed which showed Mild nonspecific medial joint space narrowing. Nonaggressive appearing groundglass density lesion in the distal femur. Review of Systems - General: No fever no chills - Neurological: No headaches no dizziness - Ear nose throat: No sore throat no hearing difficulty no ear pain - Cardiovascular: No syncope, no chest pain, no palpitations - Gastrointestinal: No nausea vomiting or diarrhea Physical Exam General: No acute distress HEENT: No acute findings Neck: Supple Respiratory system: Able to talk in full sentences, no audible wheeze Cardiovascular: S1-S2 regular in rate and rhythm Gastrointestinal: No pain Extremities: Left knee abrasion healing well, swelling reduced, difficulty bending and putting weight on it, feels tight, bothersome when manipulated especially around patella PORTFOLIO DIRECTOR: Alert awake oriented x3 motor intact Skin: Normal turgor PFSH Medical History Contusion of left hand, initial encounter Broken toe Astigmatism of both eyes Kidney stones Impulsive ADHD Surgical History H/O endoscopy Hx of colonoscopy Family History Maternal Grandfather Substance abuse Paternal Grandmother Breast cancer Thyroid disorder Cardiovascular disease Hypertension Maternal Grandmother Breast cancer Thyroid disorder Cardiovascular disease Paternal Grandfather Diabetes Hypertension Brother Fatty liver disease, nonalcoholic Mother Hypertension Father Hypertension Social History Household Members: Family Both parents involved: Yes Caregiver staying overnight: No Housing: House Are you a primary progressive care manager to a significant other at home: No Do you presently have visiting nurse or other home services: No 75 years or older and lives alone: No Alcohol intake: current Alcohol intake frequency: a few times a month Patient Tobacco Use Status: Never used Tobacco e-Cigarette/Vaping Use: Never Used Second Hand Smoke Exposure: No Current occupational status: employed Cognitive needs: No Hearing needs: No Vision needs: Yes Physical Exam Vital Signs: Last Vital Signs Temp 98.3 F 12/17/24 08:30 Pulse 80 12/17/24 08:30 BP 120/68 12/17/24 08:30 Pulse Ox 99 12/17/24 08:30 Oxygen Delivery Method Room Air 12/17/24 08:30 BMI result Body Mass Index 22.7 Assessment & Plan Assessment & Plan (1) Left knee injury: Code(s): S89.92XA - Unspecified injury of left lower leg, initial encounter Qualifiers: Encounter type: initial encounter Qualified Code(s): S89.92XA - Unspecified injury of left lower leg, initial encounter (2) Superficial abrasion: Code(s): T14.8XXA - Other injury of unspecified body region, initial encounter (3) Knee pain: Code(s): M25.569 - Pain in unspecified knee Qualifiers: Chronicity: acute Laterality: left Qualified Code(s): M25.562 - Pain in left knee (4) Difficulty walking due to knee joint: Code(s): R26.2 - Difficulty in walking, not elsewhere classified Plan Interval History The patient is a 24-year-old male presenting with knee pain. Left knee pain: - Onset: The incident occurred on Sunday. - He ran into a machine, hitting his left knee hard. - The injury has resulted in difficulty putting pressure on the knee and bending it. - Initial swelling and redness on the knee were reported, but both have reduced. - The patient reports a sensation that the kneecap moved. - Previous care included cleaning the abrasion with a disinfectant spray and applying Trimbroncebiotic. Social History: - The patient requires a note for work due to difficulty walking. - He was off work yesterday and may need additional time off based on recovery and current ability to walk. Problem List - Left knee pain following trauma Patient Instructions - Use Tylenol or equivalent for pain management. - Ensure to have the X-ray completed. - Wear a knee brace as provided. - Await contact from the orthopedic department for further evaluation. - Rest and avoid putting weight on the affected knee. - Follow up with primary care provider, Latia Jimenez. 14:27 X-ray knee report available reviewed which showed Mild nonspecific medial joint space narrowing. Nonaggressive appearing groundglass density lesion in the distal femur. Orders: Orders XR knee LT 2V Today S89.92XA - Unspecified injury of left lower leg, initial encounter Referrals Orthopedics Referral S89.92XA - Unspecified injury of left lower leg, initial encounter Coding Level of Care Code Est Pt Level 4 (40758) Diagnoses Injury of left knee, initial encounter S89.92XA Encounter type: initial encounter Superficial abrasion T14.8XXA Acute pain of left knee M25.562 Chronicity: acute Laterality: left Difficulty walking due to knee joint R26.2 Time Spent (min) 35 Comment [id number]/following imaging report/coordination of care
--- OUTSIDE RECORDS SUMMARY | 2024-12-17 08:45 | XMS_ITS | Clinical Summary ---
Author Organization [employer] [facility] ity Address [address] [place] [address] Care Team Providers Care Manager Of Investigations Name Role Phone Unavailable Primary Care Provider [...] Vaccine (1 - 2023-2 5 season) 2023 Depression Screening 04/16/2024 Influenza Vaccine (#1) 2024 HIB Vaccines Aged [...]
== END 2024-12-17 09:26 | disposition home or self-care (01) ==
PROVIDERS: PCP Nurse Practitioner Family; Visit Provider Internal Medicine
DX: S89.92XA Unspecified injury of left lower leg, initial encounter (principal); T14.8XXA Other injury of unspecified body region, initial encounter; M25.562 Pain in left knee; R26.2 Difficulty in walking, not elsewhere classified

== ENCOUNTER → 2024-12-17 08:50 | Outpatient (BNV) | payer OTHER, SELFPAY | PROVIDERS: PCP Nurse Practitioner Family; Visit Provider Radiology Diagnostic Radiology | DX: M89.252 Other disorders of bone development and growth, left femur (principal) | CPT/HCPCS: 73560 ==

== ENCOUNTER 2024-12-22 09:47 | Outpatient (AMB) | payer OTHER, SELFPAY ==
--- NOTE | 2024-12-22 09:49 | MHC.PC.OV ---
Vital Signs 12/22/24 09:55 Height 5 ft 9.5 in Weight 157 lb 2 oz BMI 22.9 BP 136/76 Blood Pressure Location Lt brachial Position Sitting Respiration 13 Pulse 103 H Pulse Source Pulse Oximeter Temp 97.2 F Temp Source Oral Pulse Oximetry (%) 99 Oxygen Delivery Method Room Air Intake Visit Reasons: LT knee Intake Note: Patient c/o left knee px injury at work 12/15/24. Patient also c/o putting pressure on leg or even walking makes it worse. 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 Workers Comp - Left knee injury followed an impact with a machine, with initial assessment on December 17, X ray result as below. - Persistent knee pain aggravated by movement, associated with tightness; feels weak. - Swelling initially present, reduced with ibuprofen and Tylenol. - Reports needing crutches for mobility. - No prior knee problems noted before the incident. - Awaiting orthopedic evaluation, [place] [facility] - Has been out of work since 12/15. Needs a note to stay out until eval by Ortho. - Skin tear healing w/o complication. UTD Tdap 2023 Review of Systems - Musculoskeletal: Reports left knee pain, difficulty walking, initial swelling, and tightness around the knee; denies prior knee problems. - Neurological: Reports episodes of the foot feeling cold. - Skin: Reports skin tear on the left leg. Physical Exam General: Well developed, well nourished, in no acute distress. Appears stated age. Head: Normocephalic, atraumatic. Eyes: Pupils are equal, round and reactive to light and accommodation. Conjunctivae are clear. Lungs: Speaking in full sentences Musculoskeletal: LROM all directions d/t pain. Pain with palpation below knee, over knee cap and mild tenderness over distal femur. Skin tear scabbed, no signs of infection, mild localized edema of knee. Unable to bear wt w/o crutches. Pulses: Peripheral pulses are equal and palpable bilaterally. Extremities: No clubbing, cyanosis nor edema is noted. Psych: Mood and affect appropriate. Results - X-ray (completed at [facility] on December 17): Mild nonspecific medial joint space narrowing and nonaggressive-appearing ground-glass density lesion in the distal femur. Discussion Notes I discussed the patient's left knee injury resulting from an occupational accident. The x-ray findings from December 17 show mild medial joint space narrowing and a ground-glass density lesion in the distal femur. The patient has an orthopedic appointment scheduled for January 07 to further evaluate the lesion and explore treatment options. I advised continuing the current pain management regimen with ibuprofen and Tylenol as needed while emphasizing the importance of maintaining the knee brace for support intermittently to avoid discomfort from constant use. We discussed weight-bearing tolerance and advised moderate activity in line with comfort levels to avoid exacerbating the condition. I provided a note excusing the patient from work until the orthopedic consultation on January 07. Patient was given time to ask questions. All questions were answered to their satisfaction. Assessment and Plan 1. Left knee injury - Orthopedic evaluation on January 07 scheduled. - Continue ibuprofen, Tylenol for pain. - Use crutches as needed; allow weight-bearing. - Maintain intermittent knee brace use. - Work excuse provided until orthopedic visit. 2. Ground-glass lesion of distal femur - Orthopedic evaluation for lesion assessment planned. Patient Instructions - Use ibuprofen and Tylenol as needed for pain. - Keep wearing knee brace, but take it off sometimes. - Walk with crutches and put some weight on your knee as you can tolerate. - Stop working and rest until you see the orthopedic doctor on January 07. - Follow up with the orthopedic doctor on January 07 for further evaluation. Consent Patient was informed and verbally consented to the use of an ambient scribe for clinic note documentation during this visit. Total time spent caring for the patient today was 32 minutes. This includes time spent before the visit reviewing the chart, time spent during the visit, and time spent after the visit on documentation, reviewing laboratory results, diagnostic imaging, medications, performing a medically necessary evaluation, counseling on diagnoses, care coordination, ordering appropriate tests, ordering appropriate medications, review of tests performed by other providers, reporting test results with the patient, communication with other healthcare providers. [facility] Medical History Contusion of left hand, initial encounter Broken toe Astigmatism of both eyes Kidney stones Impulsive ADHD Surgical History H/O endoscopy Hx of colonoscopy Family History Maternal Grandfather Substance abuse Paternal Grandmother Breast cancer Thyroid disorder Cardiovascular disease Hypertension Maternal Grandmother Breast cancer Thyroid disorder Cardiovascular disease Paternal Grandfather Diabetes Hypertension Brother Fatty liver disease, nonalcoholic Mother Hypertension Father Hypertension Social History Household Members: Family Both parents involved: Yes Caregiver staying overnight: No Housing: House Are you a primary med care manager to a significant other at home: No Do you presently have visiting nurse or other home services: No 75 years or older and lives alone: No Alcohol intake: current Alcohol intake frequency: a few times a month Patient Tobacco Use Status: Never used Tobacco e-Cigarette/Vaping Use: Never Used Second Hand Smoke Exposure: No Current occupational status: employed Cognitive needs: No Hearing needs: No Vision needs: Yes Questionnaire Thrive Questionnaire Date Thrive assessed: 05/02/24 ISABEL-7 AMB Questionnaire ISABEL-7 Date ISABEL - 7 assessed: 05/02/24 Source: Developed by Drs. Yung Lopez, Margaret August, Angelo Paredes and colleagues, with an educational vanesa from [employer]. Physical exam (Primary Care) Vital Signs: Last Vital Signs Temp 97.2 F 12/22/24 09:55 Pulse 103 H 12/22/24 09:55 Resp 13 12/22/24 09:55 BP 136/76 12/22/24 09:55 Pulse Ox 99 12/22/24 09:55 Oxygen Delivery Method Room Air 12/22/24 09:55 BMI result Body Mass Index 22.9 Tobacco/Smoking Status: Tobacco use Status Tobacco use date assessed 12/22/24 12/22/24 09:52 Patient Tobacco Use Status Never used Tobacco 12/22/24 09:52 e-Cigarette/Vaping Use Never Used 12/22/24 09:52 Thrive Assessment: Date of Thrive Assessment Date Thrive assessed 05/02/24 12/22/24 09:52 Results Reviewed Results Reviewed: Patient: Dannie Valera MR#: [id number] : 2000 Acct:[id number] Age/Sex: 24 / M ADM Date: 12/17/24 Loc: HO.HMGCX Attending Dr: Leandra Brumfield MD Ordering Physician: Leandra Brumfield MD Date of Service: 12/17/24 Procedure(s): XR knee LT 2V Accession Number(s): [id number] cc: Leandra Brumfield MD; Constance Jimenez [facility]-~ Reason for Exam: S89.92XA - Unspecified injury of left lower leg, initial encounter EXAMINATION: XR KNEE, LEFT CLINICAL INFORMATION: S89.92XA - Unspecified injury of left lower leg, initial encounter COMPARISON: None available. TECHNIQUE: AP and lateral views of the left knee. FINDINGS: There is no joint effusion. There is subtle narrowing of the medial joint space. There are no soft tissue calcifications Groundglass density which geographic margins is noted in the posterior medial metaphysis of the distal femur. XR/XR knee LT 2V IMPRESSION: Mild nonspecific medial joint space narrowing. Nonaggressive appearing groundglass density lesion in the distal femur. Electronically signed by: Jorje Ortiz MD 12/17/2024 10:03 AM EDT Coding Level of Care Code Est Pt Level 4 (40030) Complex EM visit Add On G2211 Diagnoses Encounter related to worker's compensation claim Z02.6 Injury of left knee, initial encounter S89.92XA Encounter type: initial encounter Superficial abrasion T14.8XXA Difficulty walking due to knee joint R26.2 Assessment & Plan Assessment & Plan (1) Encounter related to worker's compensation claim: Code(s): Z02.6 - Encounter for examination for insurance purposes (2) Left knee injury: Code(s): S89.92XA - Unspecified injury of left lower leg, initial encounter Category: Medical Qualifiers: Encounter type: initial encounter Qualified Code(s): S89.92XA - Unspecified injury of left lower leg, initial encounter (3) Superficial abrasion: Code(s): T14.8XXA - Other injury of unspecified body region, initial encounter Category: Medical (4) Difficulty walking due to knee joint: Code(s): R26.2 - Difficulty in walking, not elsewhere classified Category: Medical Plan .
[2024-12-22 09:55] VITALS: BP 136/76; PULSE 103; RESP 13; TEMP 36.2; O2SAT 99; BMI 22.9
--- OUTSIDE RECORDS SUMMARY | 2024-12-22 11:20 | XMS_ITS | Clinical Summary ---
Author Organization [facility] ity Address [address] [place] [address] Care Team Providers Care Supply Chain Program Manager Name Role Phone Unavailable Primary Care Provider [...]
== END 2024-12-22 12:27 | disposition home or self-care (01) ==
LOC: HO.HMCFM 09:48
PROVIDERS: PCP Nurse Practitioner Family; Visit Provider Nurse Practitioner Family
DX: S89.92XA Unspecified injury of left lower leg, initial encounter (principal); Z04.2 Encounter for examination and observation following work accident; T14.8XXA Other injury of unspecified body region, initial encounter; R26.2 Difficulty in walking, not elsewhere classified

== ENCOUNTER → 2024-12-22 09:47 | Outpatient (BNVA) | payer OTHER, SELFPAY | PROVIDERS: PCP Nurse Practitioner Family; Visit Provider Nurse Practitioner Family | DX: S89.92XA Unspecified injury of left lower leg, initial encounter (principal); M25.562 Pain in left knee; R26.2 Difficulty in walking, not elsewhere classified; W31.9XXA Contact with unspecified machinery, initial encounter; Y93.9 Activity, unspecified; Y92.9 Unspecified place or not applicable; Y99.0 Civilian activity done for income or pay | CPT/HCPCS: 99212 ==

== ENCOUNTER 2025-01-07 08:37 | Outpatient (AMB) | payer OTHER, SELFPAY ==
--- NOTE | 2025-01-07 08:44 | MHC.OFFVIS ---
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 Patient was working when he hit his knee on machinery. He presented to [facility] walk in clinic a couple of days later due to ongoing pain that becomes worse with weight bear. He was placed in a knee brace, crutches given. He followed up with PCP who suggested to follow up with orthopedics. Today patient reports ongoing pain at the top of kneecap and lateral aspect of knee. His pain presents with movement or bending his knee. At times causing discomfort with walking. No previous treatment to his knee. 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 He states the press machine hit his knee he went to take a step. He was unable to continue working and has been out of work since. He was seen in the walk in clinic along with PCP who referred patient to our office for ortho eval. He was fit for the knee brace which does provide support. On initial injury he had pain with stairs and was unable to apply weight to the leg. [facility] Medical History Contusion of left hand, initial encounter Broken toe Astigmatism of both eyes Kidney stones Impulsive ADHD Surgical History H/O endoscopy Hx of colonoscopy Family History Maternal Grandfather Substance abuse Paternal Grandmother Breast cancer Thyroid disorder Cardiovascular disease Hypertension Maternal Grandmother Breast cancer Thyroid disorder Cardiovascular disease Paternal Grandfather Diabetes Hypertension Brother Fatty liver disease, nonalcoholic Mother Hypertension Father Hypertension Social History (Updated 01/07/25 @ 08:53 by Joya Robles Hortencia) Household Members: Family Both parents involved: Yes Caregiver staying overnight: No Housing: House Are you a primary overnight caregiver to a significant other at home: No Do you presently have visiting nurse or other home services: No 75 years or older and lives alone: No Alcohol intake: current Alcohol intake frequency: a few times a month Patient Tobacco Use Status: Never used Tobacco e-Cigarette/Vaping Use: Never Used Second Hand Smoke Exposure: No Current occupational status: employed 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 [employer] Cognitive needs: No Hearing needs: No Vision needs: Yes Review of Systems Const All systems reviewed & are unremarkable except as noted in HPI and below Physical Exam Vital Signs: BMI result Body Mass Index 23.2 Const General: cooperative and no acute distress Orientation/consciousness: patient oriented x3 Resp Effort & Inspection: normal respiratory effort and able to speak in complete sentences Cardio Peripheral pulses: Peripheral pulses 2+ throughout Neuro General: patient oriented x3 Extrem Other: Left knee is normal to inspection he does have a healed abrasion over the superior portion of the patella. He has full range of motion. No medial or lateral joint line tenderness. No ligamentous laxity. He has discomfort with palpation along the retropatellar aspect of the patella and pain with patellar grind. Neurovascularly intact. Results Reviewed Results Reviewed: X-rays of the left knee obtained in the office today show no acute or chronic abnormalities. Assessment & Plan Assessment & Plan (1) Contusion of left knee: Code(s): S80.02XA - Contusion of left knee, initial encounter Category: Medical (2) Chondromalacia of left patellofemoral joint: Code(s): M22.42 - Chondromalacia patellae, left knee Category: Medical Plan At this time the patient does appear to have an acute flare-up from the injury at work and would benefit from a course of anti-inflammatories to help with this flare. I encouraged him to take ibuprofen 800 mg 3 times a day for 2 weeks. He was also given an order for physical therapy to work on strengthening conditioning exercises to help offset the load through the patella. He can return to work on sedentary restrictions only. I will see him back in 6 weeks, sooner if needed. Orders: Orders PT Evaluation and Treatment Today M22.42 - Chondromalacia patellae, left knee, S80.02XA - Contusion of left knee, initial encounter XR knee LT 1V Today M25.562 - Pain in left knee Medications: Changed From ibuprofen 800 mg PO Q8H 10 days 30 tabs 0RF To ibuprofen 800 mg PO Q8H 90 tabs 3RF 30 days Coding Level of Care Code New Pt Level 3 (42548) Complex EM visit Add On G2211 Diagnoses Contusion of left knee S80.02XA Chondromalacia of left patellofemoral joint M22.42
[2025-01-07 08:53] VITALS: BMI 23.2
--- OUTSIDE RECORDS SUMMARY | 2025-01-07 09:41 | XMS_ITS | Clinical Summary ---
Author Organization [employer] [facility] ity Address [address] [place] [address] Care Team Providers Care Bread Panner Name Role Phone Unavailable Primary Care Provider [...] of 3 - 19+ 3-dose series) 2020 Depression Screening 04/16/2024 COVID-19 Vaccine (1 - 2023-2 5 season) 2024 Influenza Vaccine (#1) 2024 HIB Vaccines Aged [...]
== END 2025-01-07 09:32 | disposition home or self-care (01) ==
LOC: HO.HOS 08:38
PROVIDERS: PCP Nurse Practitioner Family; Visit Provider Physician Assistant
DX: S80.02XA Contusion of left knee, initial encounter (principal); M22.42 Chondromalacia patellae, left knee
CPT/HCPCS: 99203; G2211

== ENCOUNTER → 2025-01-07 08:40 | Outpatient (BNV) | payer OTHER, SELFPAY | PROVIDERS: Visit Provider Radiology Vascular & Interventional Radiology | DX: M25.562 Pain in left knee (principal) | CPT/HCPCS: 73560 ==

== ENCOUNTER 2025-01-07 09:30 | Outpatient (REF) | payer OTHER, SELFPAY ==
--- NOTE | ~2025-01-07 | XR_ITS ---
CLINICAL HISTORY: M25.562 - Pain in left knee --- Additional Notes or Special Instructions: sunrise 1 view left knee Comparison: 12/17/2024 Findings: No fractures or dislocations. No significant loss of joint space, osteophytes, or erosions. No joint effusion. No radiopaque foreign body. IMPRESSION: No dislocation or evidence of fracture of the patella. The remainder of the knee is not evaluated on this single view. This document has been electronically signed by: Chase Petersen MD on 01/07/2025 12:02:33
== END 2025-01-07 09:31 | disposition home or self-care (01) ==
LOC: HO.HOSX 09:30
PROVIDERS: Visit Provider Physician Assistant
DX: S80.02XA Contusion of left knee, initial encounter (principal); M22.42 Chondromalacia patellae, left knee; W31.89XA Contact with other specified machinery, initial encounter; Y99.0 Civilian activity done for income or pay
CPT/HCPCS: 73560

== ENCOUNTER 2025-02-20 13:56 | Outpatient (AMB) | payer OTHER, SELFPAY ==
--- NOTE | 2025-02-20 14:06 | A.OFFVIS_ITS ---
Vital Signs 02/20/25 14:10 Height 5 ft 9 in Weight 157 lb BMI 23.2 Intake Visit Reasons: 6 weeks left knee contusion w/c injury Intake Note: Dannie is a 24 year old male who presents today for a follow up visit of left knee W/C injury, DOI 12/15/24. At his last visit he was prescribed an anti- inflammatory, he was advise to attend physical therapy and was given a work note to return to work on sedentary restrictions only. Today patient reports that he has been attending therapy, and believes his last visit is next week. States his knee continues to bother him however he feels his discomfort is improving. Allergies amoxicillin Allergy (Severe, Verified 02/20/25 14:10) Shortness of Breath Medication List - Last Reconciled 02/20/25 by Micheal Yousif PA-C ibuprofen 800 mg PO Q8H 30 days HPI HPI 6 weeks left knee contusion w/c injury: Details: 24-year-old gentleman returns to the office today for a follow-up left knee contusion from workman's comp injury dated 12/15/2024. Patient states he has been working with physical therapy and increasing activities as tolerated. He is still has occasional discomfort with certain activities but overall he is progressing well. [facility] Medical History Contusion of left hand, initial encounter Broken toe Astigmatism of both eyes Kidney stones Impulsive ADHD Surgical History H/O endoscopy Hx of colonoscopy Family History Maternal Grandfather Substance abuse Paternal Grandmother Breast cancer Thyroid disorder Cardiovascular disease Hypertension Maternal Grandmother Breast cancer Thyroid disorder Cardiovascular disease Paternal Grandfather Diabetes Hypertension Brother Fatty liver disease, nonalcoholic Mother Hypertension Father Hypertension Social History Household Members: Family Both parents involved: Yes Caregiver staying overnight: No Housing: House Are you a primary vehicle care specialist to a significant other at home: No Do you presently have visiting nurse or other home services: No 75 years or older and lives alone: No Alcohol intake: current Alcohol intake frequency: a few times a month Patient Tobacco Use Status: Never used Tobacco e-Cigarette/Vaping Use: Never Used Second Hand Smoke Exposure: No Current occupational status: employed 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 He has full range of motion. No medial or lateral joint line tenderness. No ligamentous laxity. He has discomfort with palpation along the retropatellar aspect of the patella and pain with patellar grind. Neurovascularly intact. Assessment & Plan Assessment & Plan (1) Chondromalacia of left patellofemoral joint: Code(s): M22.42 - Chondromalacia patellae, left knee Category: Medical Plan: He will continue with his home exercise program and continue with activities as tolerated. I did explain he may have occasional flare-ups as he begins working again which she can help manage with anti-inflammatories. He was given a work note today to return to work on 03/16/2025 without restrictions. If there is any questions or concerns going forward he will contact our office otherwise follow up as needed. Medications: Refilled ibuprofen 800 mg PO Q8H 90 tabs 3RF 30 days Coding Level of Care Code Est Pt Level 3 (45149) Complex EM visit Add On G2211 Diagnoses Chondromalacia of left patellofemoral joint M22.42
[2025-02-20 14:10] VITALS: BMI 23.2
--- OUTSIDE RECORDS SUMMARY | 2025-02-20 15:49 | XMS_ITS | Clinical Summary ---
Author Organization [employer] [facility] ity Address [address] [place] [address] Care Team Providers Care High School Physical Education Teacher Name Role Phone Unavailable Primary Care Provider [...] 5 season) 2024 Influenza Vaccine (#1) 2024 RSV Immunization Adult Patie nts (1 - 1-dose 75+ series) 2076 HIB Vaccines Aged Out No longer eligi [...]
== END 2025-02-20 14:28 | disposition home or self-care (01) ==
LOC: HO.HOS 13:57
PROVIDERS: PCP Nurse Practitioner Family; Visit Provider Physician Assistant
DX: M22.42 Chondromalacia patellae, left knee (principal)
CPT/HCPCS: 99213; G2211

== ENCOUNTER → 2025-02-20 13:56 | Outpatient (BNVA) | payer OTHER, SELFPAY | PROVIDERS: PCP Nurse Practitioner Family; Visit Provider Physician Assistant | DX: M25.562 Pain in left knee (principal); M22.42 Chondromalacia patellae, left knee | CPT/HCPCS: 99212 ==

== ENCOUNTER 2025-02-23 10:00 | Outpatient (RCR) | payer OTHER, SELFPAY ==
--- NOTE | 2025-02-02 10:41 | MHC.PT.EP ---
[facility] [place] Office [place] Office [place] Office [address] James Harris [address] [phone] F: [phone] F: [phone] F: [phone] F: [phone] Physical Therapy Plan of Care Date of Evaluation: 02/02/25 Date of Surgery: n/a Diagnosis: chondromalacia patella, L knee Assessment: Patient is a 24 year old male presenting to PT with complaints of pain in his L knee. Pt reports onset of pain began 12/15/2024 due to hitting his knee on a machine at work. He presents today with impairments in pain, knee strength, hip strength. 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 Pt expresses long-term goal of reducing pain, and is motivated to work towards this in PT. Clinical presentation today is most consistent with signs and sx associated with L knee pain and pt will benefit from skilled PT 2 week x 4 weeks to address the following problems and impairments noted upon evaluation: pain, knee strength, hip strength. These problems limit the patient with the following functional activities: ambulating, stair negotiation, ADLs, work. The prescribed treatment plan of care is medically necessary. Co-morbidities of none were identified and taken into considerations of plan of care. Pt was educated on HEP, role of PT, prognosis, POC. Frequency and Duration: The patient will be seen 2 x week x 4 weeks Short Term Goals: Pt will demonstrate improved L knee ext strength to 5/5 in 2 weeks. Pt will demonstrate improved hip MMT strength by 1/3 grade in 2 weeks. Group Home Goals: Pt will demonstrate improved LEFI score by 9 points in 4 weeks for improved functional mobility. Pt will demonstrate ability to ambulate and stand for prolonged periods of time with min to no pain in 4 weeks for improved tolerance to work. Treatment Plan: Modalities to reduce pain, spasms and effusion. Manual therapy to restore motion and function. Therapeutic exercise to improve strength and flexibility. Neuromuscular re-education for posture and balance. Therapeutic activities to return to functional activities of daily living. Electronically signed by: Adri Morejon, PT, DPT, ATC Please sign and return to therapist. Thank you for your referral.
--- NOTE | 2025-02-23 10:40 | MHC.PT.DC ---
[facility] [place] Office [place] Office [place] Office [address] James Harris [address] [phone] F: [phone] F: [phone] F: [phone] F: [phone] Physical Therapy Discharge Report Diagnosis: chondromalacia patella, L knee Date of Surgery: n/a Date of Evaluation: 02/02/25 Date of Discharge: 02/23/25 Treatments to Date: 4 Cancellations to Date: 0 No Shows to Date: 0 Discharge Status: Achieved Goals Improved Function Independent with HEP Discharge Summary: 02/23/2025: Pt has made good progress since start of care. His pain is better overall and he is able to complete his full program without issues. He does have some lingering pain with kneeling that he makes note of. At this time max benefits of PT have been provided and skilled PT is no longer indicated. 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 He is in agreement with d/c today. Electronically signed by: Adri Morejon, PT, DPT, ATC Please sign and return to therapist. Thank you for your referral.
== END 2025-02-23 10:40 | disposition home or self-care (01) ==
LOC: HO.PTCHIC 10:00
PROVIDERS: PCP Nurse Practitioner Family; Visit Provider Physician Assistant
DX: S80.02XD Contusion of left knee, subsequent encounter (principal); M22.42 Chondromalacia patellae, left knee
CPT/HCPCS: 97110; 97161